=== PATIENT | female | born 1985 | race Caucasian/White ===

== ENCOUNTER 2017-08-21 08:46 | Emergency (ER) | payer MEDICAID ==
[~2017-08-21] VITALS: Ht 165.1 cm; Wt 66.8 kg
[~2017-08-21 08:46] MED LIST: METH40TA3 PO
[2017-08-21 08:48] VITALS: BP 121/84
[2017-08-21] MEDS ORDERED: SODIUM CHLORIDE FLUSH 10ML SYR IVF ONE (09:30)
[2017-08-21 09:45] LABS: PATH.CAST-FLAG NOT PRESENT; SPERM-FLAG NOT PRESENT; SRC-FLAG NOT PRESENT; XTAL-FLAG NOT PRESENT; YLC-FLAG NOT PRESENT
[2017-08-21 09:51] LABS: ASPARTATE AMINO TRANSFERASE 29 U/L (15-37); BLOOD UREA NITROGEN 12 mg/dL (7-18)
[2017-08-21 09:59] LABS: HEMATOCRIT 44.7 % (34.6-47.8); HEMOGLOBIN 15.6 g/dL (11.7-16.4); WHITE BLOOD COUNT 7.3 x10^3/uL (3.4-10)
[2017-08-21] MEDS ORDERED: OMNIPAQUE 350 MG/ML, 100ML BOTTLE ONE (10:58)
== END 2017-08-21 11:39 | disposition home or self-care (01) ==
LOC: ED 11:26
DX: N30.00 Acute cystitis without hematuria (principal); F17.200 Nicotine dependence, unspecified, uncomplicated
CPT/HCPCS: 36415; 74177; 80053; 81001; 83690; 84703; 85025; 87086; 99285; Q9967